=== PATIENT | female | born 1945 | race Caucasian/White ===

== ENCOUNTER 2016-12-18 16:56 | Observation (INO) ==
[2016-12-18] MEDS ORDERED: Albuterol 2.5 MG/3 ML NEBULIZER IH ONE (17:09)
[2016-12-18] MEDS ORDERED: Ipratropium/Albuterol Neb 3 ML IH ONE (17:09)
--- NOTE | 2016-12-18 17:12 | Emergency Department Note ---
Disposition Clinical Impression: COPD exacerbation, Atrial fibrillation with RVR Pneumonia Qualifiers: Pneumonia type: due to unspecified organism Laterality: right Lung location: lower lobe of lung Qualified Code(s): J18.1 - Lobar pneumonia, unspecified organism Disposition: Admitted As Inpatient Condition: Good Time of Disposition: 19:14 SOB HPI - General Chief Complaint: ED Shortness of Breath/Dyspnea Stated Complaint: D.I.B. Time Seen by Provider: 12/18/16 17:08 Source: patient Mode of arrival: EMS Limitations: no limitations Nursing Notes Reviewed: Yes Vital Signs Reviewed: Yes - History of Present Illness 71-year-old white female with difficulty breathing and chest discomfort for 2 days. She has had a cough productive purulent sputum. She has felt like she has had a fever, not documented. Her chest discomfort is right-sided, pressure- like, and intermittent. She has no chest pain now. No abdominal pain. She has a history of COPD, is on 4 L of oxygen, and continues to smoke a pack of cigarettes a day. Pt Subjective Complaint: shortness of breath, cough, chest pain Onset (ago): day(s) Context: recent illness (2) Severity: moderate Consistency/Duration: constant Improves with: oxygen, rest Worsens with: exertion Known history of: COPD Associated symptoms: Reports: chest pain, fever, cough, sputum production Treatment prior to arrival: oxygen, bronchodilator Cough present: Yes Cough Description: Involuntary Cough Frequency: Intermittent Sputum production: Yes Sputum Amount: Moderate Sputum Color: Yellow - Related Data Home oxygen amount: 4 liters Home Medications Medication Instructions Recorded Confirmed Amitriptyline HCl 25 mg PO DAILY 11/07/15 12/18/16 FLUoxetine HCl [Prozac] 1 cap PO DAILY 11/07/15 12/18/16 Cyclobenzaprine [Flexeril] 10 mg PO BID 12/18/16 12/18/16 Diazepam [Valium] 5 mg PO BID 12/18/16 12/18/16 Allergies Allergy/AdvReac Type Severity Reaction Status Date / Time No Known Allergies Allergy Verified 11/07/15 18:59 All systems ED: reviewed and negative except as stated. Constitutional: Reports: fever (Subjective). Denies: chills Eyes: Denies: eye discharge ENT ED: Reports: throat pain. Denies: ear pain Cardiovascular: Reports: chest pain Respiratory: Reports: cough, dyspnea, wheezes, sputum production Gastrointestinal: Denies: abdominal pain, nausea, vomiting, diarrhea Genitourinary: Denies: urgency, dysuria, frequency Musculoskeletal: Denies: back pain Integumentary: Denies: rash Neurological: Denies: weakness, numbness, paresthesias Past Medical History - Past Medical History Medical history: Reports: COPD, GERD Surgical history: Reports: other Psychiatric history: Reports: no psych history [employer] history: Reports: other - Social History Smoking Status: Current every day smoker Alcohol use: Reports: none Drug use: Reports: none Physical Exam - General Limitations: no limitations General appearance: alert, in distress (Mildly dyspneic) - Head Head exam: atraumatic, normocephalic - Eye Eye exam: Present: PERRL, EOMI. Absent: scleral icterus, conjunctival injection - ENT ENT exam: normal oropharynx, mucous membranes moist, TM's normal bilaterally - Neck Neck exam: Present: normal inspection, full ROM, trachea midline. Absent: lymphadenopathy - Chest Chest inspection: Present: normal inspection, symmetric chest wall rise - Respiratory Respiratory exam: Present: respiratory distress, wheezes (Mildly dyspneic moderate bilateral expiratory), accessory muscle use, prolonged expiratory phase - Cardiovascular Cardiovascular exam: Present: regular rate, tachycardia. Absent: systolic murmur, diastolic murmur, gallop - Abdominal Exam Abdominal exam: Present: soft, Non-Tender. Absent: organomegaly, mass - Extremities Exam Extremities exam: Present: normal inspection, full ROM, normal capillary refill. Absent: tenderness, pedal edema, calf tenderness - Neurological Exam Neurological exam: Present: alert, oriented X3, CN II-XII intact. Absent: motor sensory deficit - Psychiatric Psychiatric exam: Present: normal affect, normal mood - Skin Skin exam: Present: warm, dry, intact, normal color. Absent: cyanosis, diaphoresis Course - Reevaluation(s) Reevaluation #1: Discussed treatment plan with patient. She will require admission. She is agreeable. I spoke with Dr. Steel. He is agreeable with admitting the patient. Time: 19:00 Reevaluation #2: Since heart rate just increased. On the monitor it appears that she is having paroxysmal atrial fibrillation with heart rate of 160. She is going in and out of atrial fibrillation. We did do a 12-lead which confirm this. I gave her Cardizem bolus and a bolus of digoxin after talking with Dr. Steel. We will hold off on the Cardizem drip for now. I put in an order for a monitored bed. Time: 18:30 Vital Signs Temperature 97.8 F 12/18/16 16:58 Pulse Rate 112 12/18/16 16:58 Respiratory Rate 20 12/18/16 16:58 Blood Pressure 141/77 12/18/16 16:58 O2 Sat by Pulse Oximetry 92 12/18/16 16:58 Temperature 97.8 F 12/18/16 16:58 Pulse Rate 112 12/18/16 16:58 Respiratory Rate 18 12/18/16 18:06 Blood Pressure 141/77 12/18/16 16:58 O2 Sat by Pulse Oximetry 90 12/18/16 18:06 Oxygen Delivery Oxygen Delivery Nasal Cannula Shortness of Breath/Dyspnea - [facility] Narrative Medical decision making narrative: Radiographically she has no infiltrate and/or effusion on the right. Based on her history I think she has pneumonia. She has a COPD exacerbation. She will require admission. - Differential Diagnosis Likely: acute exacerbation of chronic obstructive airways disease, congestive heart failure, pneumonia, asthma with exacerbation, pulmonary embolism, pneumothorax, arrhythmia - Lab Data Lab results reviewed: Yes I reviewed the patient's lab results. Result diagrams: 12/18/16 17:39 12/18/16 17:39 Lab Results 12/18/16 12/18/16 12/18/16 Range/Units 17:39 17:39 17:39 WBC 7.2 (4.3-11.1) K/mcL RBC 4.22 (3.82-4.97) M/mcL Hgb 12.9 (11.5-15.4) g/dL Hct 40.2 (35.3-44.9) % MCV 95.3 (83.0-100.0) fL MCH 30.6 (28.0-33.3) pg MCHC 32.1 (31.6-35.5) g/dL RDW 13.9 (11.5-14.5) % Plt Count 351 (140-400) K/mcL MPV 9.6 (9.4-12.4) fL Immature Gran % 0.8 (0-4) % Seg Neutrophils % 65.2 % Lymphocytes % 18.9 % Monocytes % 13.5 % Eosinophils % 0.8 % Basophils % 0.8 % Neutrophils # 4.7 (1.6-8.9) K/mcL Lymphocytes # 1.4 (0.6-4.6) K/mcL Monocytes # 1.0 (0.0-1.3) K/mcL Eosinophils # 0.1 (0.0-0.6) K/mcL Basophils # 0.1 (0.0-0.2) K/mcL VBG Lactic Acid (0.5-2.2) mmol/L Sodium 139 (136-145) mEq/L Potassium 3.9 (3.5-4.5) mEq/L Chloride 93 L (98-109) mEq/L Carbon Dioxide 34 H (19-29) mEq/L BUN 12 (7-20) mg/dL Creatinine 0.54 L (0.57-1.11) mg/dL Est GFR ( Amer) > 60 (> 60) Est GFR (Non-Af Amer) > 60 (> 60) BUN/Creatinine Ratio 22 (6-26) Glucose 106 H (70-99) mg/dL Calculated Osmolality 288 (280-300) Calcium 8.9 (8.6-10.8) mg/dL Total Bilirubin 0.3 (0.2-1.2) mg/dL AST 22 (5-34) Units/L ALT 8 (0-55) Units/L Alkaline Phosphatase 65 (38-126) Units/L Troponin I 0.02 (0-0.03) ng/mL B-Natriuretic Peptide (0-100) pg/mL Serum Total Protein 6.4 (6.0-8.3) g/dL Albumin 2.6 L (3.5-5.0) g/dL Globulin 3.8 H (2.4-3.5) g/dL Albumin/Globulin Ratio 0.7 L (1.1-2.2) 12/18/16 12/18/16 Range/Units 17:39 18:44 WBC (4.3-11.1) K/mcL RBC (3.82-4.97) M/mcL Hgb (11.5-15.4) g/dL Hct (35.3-44.9) % MCV (83.0-100.0) fL MCH (28.0-33.3) pg MCHC (31.6-35.5) g/dL RDW (11.5-14.5) % Plt Count (140-400) K/mcL MPV (9.4-12.4) fL Immature Gran % (0-4) % Seg Neutrophils % % Lymphocytes % % Monocytes % % Eosinophils % % Basophils % % Neutrophils # (1.6-8.9) K/mcL Lymphocytes # (0.6-4.6) K/mcL Monocytes # (0.0-1.3) K/mcL Eosinophils # (0.0-0.6) K/mcL Basophils # (0.0-0.2) K/mcL VBG Lactic Acid 2.2 (0.5-2.2) mmol/L Sodium (136-145) mEq/L Potassium (3.5-4.5) mEq/L Chloride (98-109) mEq/L Carbon Dioxide (19-29) mEq/L BUN (7-20) mg/dL Creatinine (0.57-1.11) mg/dL Est GFR ( Amer) (> 60) Est GFR (Non-Af Amer) (> 60) BUN/Creatinine Ratio (6-26) Glucose (70-99) mg/dL Calculated Osmolality (280-300) Calcium (8.6-10.8) mg/dL Total Bilirubin (0.2-1.2) mg/dL AST (5-34) Units/L ALT (0-55) Units/L Alkaline Phosphatase (38-126) Units/L Troponin I (0-0.03) ng/mL B-Natriuretic Peptide 51 (0-100) pg/mL Serum Total Protein (6.0-8.3) g/dL Albumin (3.5-5.0) g/dL Globulin (2.4-3.5) g/dL Albumin/Globulin Ratio (1.1-2.2) - Radiology Data Radiology results reviewed: Yes I reviewed the patient's radiology results. ITS Impressions Chest X-Ray 12/18/16 17:09 IMPRESSION: Small-moderate sized right pleural effusion. D/ / Myke Calvo MD / Myke Calvo MD Interpreting Provider: Myke Calvo MD - EKG Data EKG attestation: Yes I reviewed and interpreted this EKG. EKG results narrative: Sinus tachycardia, rate 109, nonspecific ST-T changes. Rhythm strip shows sinus tachycardia with rate 109, irritable 73 ms, QRS of 93 ms with no other ectopy as interpreted by me. EKG #2: Atrial fibrillation with RVR with a rate of 149. Rhythm strip shows atrial fibrillation with a rate of 149, QRS 86 ms with no other ectopy as interpreted by me.
[2016-12-18 17:46] LABS: Basophils # 0.1 K/mcL (0.0-0.2); Basophils % 0.8 %; Eosinophils # 0.1 K/mcL (0.0-0.6); Eosinophils % 0.8 %; Hematocrit 40.2 % (35.3-44.9); Hemoglobin 12.9 g/dL (11.5-15.4); Immature Granulocytes % 0.8 % (0-4); Lymphocytes # 1.4 K/mcL (0.6-4.6); Lymphocytes % 18.9 %; Mean Corpuscular HGB Conc 32.1 g/dL (31.6-35.5); Mean Corpuscular Hemoglobin 30.6 pg (28.0-33.3); Mean Corpuscular Volume 95.3 fL (83.0-100.0); Mean Platelet Volume 9.6 fL (9.4-12.4); Monocytes % 13.5 %; Neutrophils # 4.7 K/mcL (1.6-8.9); Platelet Count 351 K/mcL (140-400); Red Blood Count 4.22 M/mcL (3.82-4.97); Red Cell Distribution Width 13.9 % (11.5-14.5); Segmented Neutrophils % 65.2 %
[2016-12-18 18:05] LABS: Alanine Aminotransferase 8 Units/L (0-55); Albumin 2.6 g/dL (3.5-5.0); Albumin/Globulin Ratio 0.7 (1.1-2.2); Alkaline Phosphatase 65 Units/L (38-126); Aspartate Amino Transferase 22 Units/L (5-34); BUN/Creatinine Ratio 22 (6-26); Bilirubin,Total 0.3 mg/dL (0.2-1.2); Blood Urea Nitrogen 12 mg/dL (7-20); Calcium 8.9 mg/dL (8.6-10.8); Carbon Dioxide 34 mEq/L (19-29); Chloride 93 mEq/L (98-109); Globulin 3.8 g/dL (2.4-3.5); Glucose 106 mg/dL (70-99); Osmolality,Calculated 288 (280-300); Potassium 3.9 mEq/L (3.5-4.5); Sodium 139 mEq/L (136-145); Total Protein 6.4 g/dL (6.0-8.3); eGFR For African Americans > 60 (> 60); eGFR For Non-African Americans > 60 (> 60)
[2016-12-18] MEDS ORDERED: CefTRIAXone 1,000 MG in D5% in Water (Mini-Bag+) 100 ML IVPB ONE ×2 (18:18→20:17)
[2016-12-18] MEDS ORDERED: Azithromycin 500 MG in D5% in Water 250 ML IVPB ONE (18:18)
[2016-12-18] MEDS ORDERED: *HR* Digoxin 0.5 MG/2 ML AMPUL IVP ONE (19:27)
[2016-12-18] MEDS ORDERED: Acetaminophen 325 MG TABLET PO PRN (20:17)
[2016-12-18] MEDS ORDERED: Ondansetron ODT 4 MG TAB.RAPDIS SL PRN (20:17)
[2016-12-18] MEDS ORDERED: Naloxone 0.4 MG/ML INJ IVP PRN ×2 (20:17)
[2016-12-18] MEDS: Ipratropium/Albuterol Neb 3 ML IH SCH (23:44)
[2016-12-19] MEDS: MethylPREDNISolone 40 MG/ML VIAL IVP SCH ×2 (01:45→09:00)
[2016-12-19] MEDS: Ipratropium/Albuterol Neb 3 ML IH SCH ×2 (04:22→09:12)
[2016-12-19] MEDS ORDERED: *HR* Enoxaparin 40 MG/0.4 ML SYRINGE SQ SCH (06:00)
[2016-12-19] MEDS ORDERED: FLUoxetine 20 MG CAPSULE PO SCH ×2 (09:00)
[2016-12-19] MEDS ORDERED: Albuterol 2.5 MG/3 ML NEBULIZER IH PRN (11:16)
--- NOTE | 2016-12-19 11:37 | Internal Med History&Physical ---
Date of Encounter: 12/19/16 Time of Encounter: 11:00 Assessment and Plan (1) Atrial fibrillation with RVR Current visit: Yes Status: Acute Appears to be paroxysmal. Duration unknown. I will start her on Xarelto and order echocardiogram and thyroid studies. (2) Pneumonia Current visit: Yes Status: Acute Chest x-ray showed right lower lobe infiltrate and/or effusion. We will order chest CT to further evaluate. She has been started on Rocephin and Zithromax through emergency room. Qualifiers: Pneumonia type: due to unspecified organism Laterality: right Lung location: lower lobe of lung Qualified Code(s): J18.1 - Lobar pneumonia, unspecified organism (3) COPD exacerbation Current visit: Yes Status: Acute Continue antibiotics as per emergency room orders. Internal Medicine - H&P: HPI Chief complaint: Dyspnea Admitted From: Home Plans for Post Hospital Care: Home History of present illness: Ms. Robles is a 71 year old female who came to the emergency room stating she had progressive dyspnea over the preceding 5 days. She reports feeling chilled and having Kayes no headaches. There was no vomiting or diarrhea. She took OTC Advil flu preparation without improvement. A friend convinced her to come to emergency room. She was evaluated and found to have AF with RVR and possible right lower lobe pneumonia. She was admitted to [facility] floor for ongoing care needs. She states her breathing is significantly improved at the present time. Her respiratory history is significant for having smoked since age 28 up to 1-1/2 packs per day. She has a diagnosis of COPD/emphysema and states PFTs were done approximately 2014. She wears oxygen at bedtime and when necessary during the daytime. She had a negative workup for CHARLINE. She reports occasional sensation of fast/ irregular heartbeat intermittently over the past year and a half. She has never been diagnosed with AF with RVR in the past. She has history of hypertension but does not take medication at this time. She denies chest pain heart failure DVT or pulmonary embolus. She thinks she had negative exercise stress test over 10 years ago. Past Med Surg Social Fam HX - Past Medical History Medical history: COPD, GERD Psychiatric history: anxiety, bipolar - Past Surgical History Surgical History: other - Social History Smoking Status: Current every day smoker Smokeless Tobacco Status: No Alcohol use: none Drug use: none - Family History Mother History Unknown: Yes Adopted: [place]: Rajni Schofield Family Member Ethnicity: Non- Living Status: Hx Family Endocrine Disorder: Yes Internal Medicine - H&P: Meds Amitriptyline HCl 25 mg PO DAILY 11/07/15 [History] FLUoxetine HCl [Prozac] 1 cap PO DAILY 11/07/15 [History] Cyclobenzaprine [Flexeril] 10 mg PO BID 12/18/16 [History] Diazepam [Valium] 5 mg PO BID 12/18/16 [History] Allergies No Known Allergies Allergy (Verified 11/07/15 18:59) All Systems PM: A 10-system review of systems was performed and is negative for pertinent findings except as documented above in the HPI. Review of systems: Gen.: She states her weight has been stable at approximately 45 kg since the October 2015 [facility] hospitalization. Cardiovascular: As per history of present illness Respiratory: As per history of present illness GI: She denies disorders of her liver gallbladder or exocrine pancreas : She has had occasional bladder infection. She denies other kidney disorders. Neurologic: She denies large distribution strokes or seizures. Endocrine: She denies diabetes thyroid disease or hyperlipidemia Hematologic/oncology: She denies blood disorders cancers or anemia Psychiatric: She has anxiety and depression. She takes fluoxetine for these. [place] skeletal: She denies arthritis gout or osteoporosis. - Constitutional Vitals: Temp Pulse Resp BP Pulse Ox 98.4 F 109 22 110/65 95 12/19/16 10:43 12/19/16 10:43 12/19/16 10:43 12/19/16 10:43 12/19/16 10:43 Exam: Alcohol: She is well-developed lean female who appears in no severe distress at present time HEENT: Head is atraumatic and normal cephalic. Eyes: EOMI. There is no scleral icterus. Mouth: Mucosa is moist. Neck: Supple and nontender. There is no thyromegaly or adenopathy noted. Heart: Irregularly irregular with rate approximately 120/m. Lungs: No wheezes or crackles are heard. Abdomen: Soft and nontender. No masses or guarding noted. Extremities: There is no cyanosis edema or clubbing noted. Dorsalis pedis and posttibial pulses are 1-2 over 2 bilaterally. Neurologic: Mental status: She is talkative and a good historian. Cranial nerves: Smile is symmetric. Forehead wrinkles bilaterally. Tongue protrudes midline. EOMI. Motor: There is no pronator drift. Cerebellar: Finger to nose intact bilaterally. Skin: Warm and dry Internal Med - H&P Results - Labs CBC & Chem 7: 12/18/16 17:39 12/18/16 17:39 - VTE Documentation of Mechanical Device: Graduated compression elastic hosiery
[2016-12-19] MEDS ORDERED: *HR* Digoxin 0.25 MG TABLET PO SCH (11:45)
--- NOTE | 2016-12-19 13:36 | Electrocardiograph Report ---
[address] [address] Test Date: 2016-12-18 Pat Name: Raegan Robles Department: 9201 Room: [facility] Gender: F Insurance Sales Supervisor: : 1945 Requested By: James Morales Order Number: [id number] Reading MD: Teodoro Jiménez MD Measurements Intervals [place] Rate: 149 P: [place]: 0 QRS: 84 QRSD: 86 T: 24 QT: 274 QTc: 359 Interpretive Statements ATRIAL FIBRILLATION WITH RAPID VENTRICULAR RESPONSE Electronically Signed On 12-19-2016 13:34:59 EDT by Teodoro Jiménez MD
--- NOTE | 2016-12-19 13:36 | Electrocardiograph Report ---
[address] [address] Test Date: 2016-12-18 Pat Name: Raegan Robles Department: 9201 Room: [facility] Gender: F Grounds Crew Supervisor: Syd : 1945 Requested By: James Morales Order Number: [id number] Reading MD: Teodoro Jiménez MD Measurements Intervals [place] Rate: 109 P: 87 [place]: 173 QRS: 81 QRSD: 93 T: 56 QT: 315 QTc: 379 Interpretive Statements SINUS TACHYCARDIA BASELINE ARTIFACT Electronically Signed On 12-19-2016 13:34:35 EDT by Teodoro Jiménez MD
[2016-12-19 14:14] VITALS: BP 108/50
[2016-12-19] MEDS ORDERED: *HR* Rivaroxaban 10 MG TABLET PO SCH (17:00)
--- NOTE | 2016-12-19 17:10 | Discharge Summary ---
Date of Encounter: 12/19/16 Time of Encounter: 16:30 - Discharge Diagnosis (1) Pneumonia Priority: Primary Status: Acute Qualifiers: Pneumonia type: due to unspecified organism Laterality: right Lung location: lower lobe of lung Qualified Code(s): J18.1 - Lobar pneumonia, unspecified organism (2) Atrial fibrillation with RVR Priority: Secondary Status: Acute (3) COPD exacerbation Priority: Secondary Status: Acute (4) Pleural effusion, right Priority: Secondary Status: Acute - Discharge Medications Prescriptions: Digoxin [Lanoxin] 0.125 mg PO DAILY 365 Days Home Medications: FLUoxetine HCl [Prozac] 1 cap PO DAILY 11/07/15 [History] Albuterol Neb [Proventil Neb] 2.5 mg IH Q2H PRN #0 inhsol 12/19/16 [Rx] Azithromycin [Zithromax] 500 mg IVPB Q24H vial 12/19/16 [Rx] CefTRIAXone [Rocephin] 1,000 mg IVPB Q24H vial 12/19/16 [Rx] Digoxin [Lanoxin] 0.125 mg PO DAILY 365 Days 12/19/16 [Rx] Rivaroxaban [Xarelto] 20 mg PO 1700 #0 tablet 12/19/16 [Rx] Allergies/Adverse Reactions: Allergies No Known Allergies Allergy (Verified 11/07/15 18:59) Procedures/tests Complete & Pending: Procedures Performed prior 72 hours Category Date Time Status CT chest wo con [CT] Routine Cat Scan 12/19/16 11:30 Completed EV echocardiogram Routine Y 12/19/16 11:30 Completed Date of admission: 12/18/16 19:31 Primary care physician: Queta Wu CNP - Patient Status Disposition: Transfer Other Condition: Good - Discharge Instructions Hospital course: Ms. Robles is a 71 year old female who came to the emergency room stating she had progressive dyspnea over the preceding 5 days. She reports feeling chilled and having occasional headaches. There was no vomiting or diarrhea. She took OTC Advil flu preparation without improvement. A friend convinced her to come to emergency room. She was evaluated and found to have AF with RVR and possible right lower lobe pneumonia. She was admitted to [facility] for ongoing care needs. Initial orders were written by the emergency room physician. I saw her the morning of December 19 and performed the history and physical. She was started on Rocephin and Zithromax through emergency room for pneumonia. I ordered a chest CT to further evaluate. Chest CT showed diffuse bulky midsternal lymphadenopathy throughout the chest and base of the neck consistent with neoplastic process. There was a moderate right pleural effusion suspicious for malignancy. I reviewed the CT results with her and she wished to be transferred to [facility] for further evaluation. She received a loading dose of Lanoxin in emergency room as well as a dose of Cardizem. She persisted in AF with RVR through the night with ventricular rate approximately 120/m. An echocardiogram was ordered with results pending at time of this dictation. She was started on Xarelto for CVA prophylaxis. She will be transferred to [facility] for ongoing workup and care needs. She will follow with her PCP Queta Wu CNP after discharge from [place]. - Time Spent with Patient Total time spent providing and/or coordinating discharge services: - Constitutional Vitals: Temp Pulse Resp BP Pulse Ox 99.0 F 106 16 108/50 94 12/19/16 14:10 12/19/16 14:10 12/19/16 16:20 12/19/16 14:10 12/19/16 16:20 - VTE Documentation of Mechanical Device: Graduated compression elastic hosiery
--- NOTE | 2016-12-19 17:38 | ECHO - Doppler Report ---
Echocardiogram Name: Raegan Robles Date of Study: 12/19/2016 Date: 1945 Ht: 67.0 in Medical Record#: [id number] Age: 71 Wt: 99.0 lb Gender: Female BSA: 1.5 Order #: [id number] Location: [facility] Room #: 50 Reading Physician: Sergio Conley MD, [facility] Prism Inspector: Raghav Melgar [facility] Ordering Physician: Olvin Steel MD Primary Physician: Indications: Atrial Fibrillation Impressions: Sinus tachycardia with frequent PACs. Normal LV systolic function, LVEF 60%. Normal right ventricular size and function. Mild mitral regurgitation. Mild-moderate pulmonary hypertension. Estimated RVSP = 48 mmHg. Left Ventricular Wall Motion: Rest Echo Findings All wall segments showed normal motion. Findings: Study Quality * Suboptimal echo windows. ECG Findings * Sinus tachycardia with frequent PACs. Left Ventricle * Normal LV systolic function, LVEF 60%. * Normal LV chamber size and wall thickness. * Indeterminate diastolic function. Right Ventricle * Normal right ventricular size and function. Left Atrium * Normal left atrial size. Right Atrium * Normal right atrial size. Aorta * Normally sized aortic root. Pericardium * There is a trivial pericardial effusion present. IVC * Normal IVC dimensions and inspiratory collapse. Aortic Valve * Aortic valve not well visualized. * No aortic stenosis. * No aortic regurgitation. Mitral Valve * Mild mitral annular calcification * Mildly thickened mitral valve leaflets. * No mitral stenosis. * Mild mitral regurgitation. Tricuspid Valve * Normal tricuspid valve structure. * No tricuspid stenosis. * Trace tricuspid regurgitation. * Mild-moderate pulmonary hypertension. Estimated RVSP = 48 mmHg. Pulmonic Valve * Pulmonic valve not well visualized. * No pulmonic stenosis. * No pulmonic regurgitation. History 05/06/14 a Previous Echo was performed. Measurements: BP: 110/ 65 2D Normal Values RVIDd: 3.10 cm IVSd: 1.00 cm 0.6 - 1.0 cm LVIDd: 3.70 cm 3.7 - 5.6 cm LVPWd: 1.00 cm 0.6 - 1.1 cm LVIDs: 2.60 cm 1.5 - 3.6 cm AO: 2.80 cm < 4.0 cm %FS: 30.00 cm >25 % LA volume: 40 Tricuspid Valve TV Regurg Peak Grad: 45.00mmHg TV Regurg Peak Michael: 3.36m/sec Updated by Sergio Conley MD, [facility] on 12/19/2016 5:32:16 PM electronically signed on 12/19/2016 5:33:00 PM with status of Final Wall Motion Cassidy: 1=Normal, 2=Hypokinesis, 3=Akinesis, 4=Dyskinesis, 5=Aneurysmal, 6=Hyperkinetic, X=Not Visualized (Blank)=Missing
[2016-12-19] MEDS ORDERED: Azithromycin 500 MG in D5% in Water 250 ML IVPB SCH (19:00)
[2016-12-19] MEDS ORDERED: CefTRIAXone 1,000 MG in D5% in Water (Mini-Bag+) 100 ML IVPB SCH (20:17)
== END 2016-12-19 19:00 | disposition short-term general hospital (02) ==
LOC: EMEROOPIK 16:56 → INPPIK 16:56
PROVIDERS: ADMIT Internal Medicine; ATTEND Internal Medicine